=== PATIENT | male | born 1965 | race American Indian/Alaskan Native ===

== ENCOUNTER 2018-07-03 16:22 | Outpatient (CLI) | payer OTHER ==
--- NOTE | 2018-07-03 18:42 | XRay Report ---
FINAL REPORT EXAM: XR SPINE LUMBOSACRAL 2-3V HISTORY: BACK PAIN TECHNIQUE: Frontal and lateral views lumbar spine and coned-down lateral view lumbosacral junction Comparison: None FINDINGS: Bony alignment is normal. The vertebral heights are maintained. There is loss of height of the L4-L5 and L5-S1 discs the with associated degenerative endplate change. The paraspinous soft tissues are unremarkable. IMPRESSION: 1. Degenerative change L4-L5 and L5-S1 discs with associated degenerative endplate change. MRI may be helpful for further evaluation.
== END 2018-07-03 16:23 | disposition home or self-care (01) ==
LOC: XRAY 16:22
PROVIDERS: ATTEND Internal Medicine
DX: Z02.71 Encounter for disability determination (principal); M47.897 Other spondylosis, lumbosacral region
CPT/HCPCS: 72100